=== PATIENT | female | born 1980 | race Two or more races ===

== ENCOUNTER 2023-02-12 12:40 | Emergency (ER) | payer MEDICAID, OTHER ==
[~2023-02-12] VITALS: Ht 167.6 cm; Wt 63.7 kg
[2023-02-12 15:57] VITALS: BP 124/82
[2023-02-12] MEDS ORDERED: CYCL-839 PO (16:22)
[2023-02-12] MEDS ORDERED: IBUP600T28 PO (16:22)
[2023-02-12] MEDS ORDERED: IBUPROFEN 600 MG TAB PO ONE (16:30)
== END 2023-02-12 16:27 | disposition home or self-care (01) ==
LOC: ER 12:40
DX: S16.1XXA Strain of muscle, fascia and tendon at neck level, initial encounter (principal); E03.9 Hypothyroidism, unspecified; Z79.1 Long term (current) use of non-steroidal anti-inflammatories (NSAID); Z79.899 Other long term (current) drug therapy; V49.9XXA Car occupant (driver) (passenger) injured in unspecified traffic accident, initial encounter; Y93.89 Activity, other specified; Y92.410 Unspecified street and highway as the place of occurrence of the external cause; Y99.8 Other external cause status
CPT/HCPCS: 72040